=== PATIENT | female | born 1940 | race Caucasian/White ===

== ENCOUNTER 2016-12-09 15:05 | Emergency (ER) | payer MEDICARE ==
[2016-12-09 15:15] VITALS: BP 151/70
--- NOTE | 2016-12-09 15:35 | ED Physician Documentation ---
PD HPI UPPER EXT INJURY - Stated complaint Stated Complaint: LT FINGER LAC - Chief complaint Chief Complaint: Laceration - History obtained from History obtained from: Patient - History of Present Illness Location: Left, Finger (3rd digit) Type of injury: Laceration (caught finger on door today) Where injury occurred: Home Timing - onset: How many hours ago (2) Timing - duration: Hours (2) Timing - details: Abrupt onset Pain level max: 3 Pain level now: 1 Improved by: Rest, Other (quick clot) Worsened by: Moving, Palpating Associated symptoms: No: Weakness, Numbness, Tingling, Swelling Contributing factors: No: Anticoagulated - Additonal information Additional information: Pt is right handed Review of Systems Neurologic: denies: Focal weakness, Numbness PD PAST MEDICAL HISTORY - Past Medical History Past Medical History: No - Past Surgical History Past Surgical History: No - Immunizations Immunizations: TDAP current <10years PD ED PE NORMAL - Vitals Vital signs reviewed: Yes - General General: Alert and oriented X 3, Well developed/nourished - Derm Derm: Warm and dry - Extremities Extremities: Other (L 3rd digit - NVI. 0.2cm skin avulsion over the tip of the finger. ) - Neuro Neuro: Alert and oriented X 3 - Psych Psych: Normal mood, Normal affect Results - Vitals Vitals: Vital Signs - 24 hr 12/09/16 15:10 Temperature 36.6 C Heart Rate 79 Respiratory 18 Rate Blood Pressure 151/70 H O2 Saturation 97 Oxygen O2 Source Room air PD MEDICAL DECISION MAKING - ED course Complexity details: considered differential, d/w patient, d/w family ED course: Patient is a 76-year-old female with a small skin avulsion over the L 3rd digit. NVI. The wound was cleansed and bandaged. Gelfoam placed over the wound. Antibiotic ointment applied. Bleeding controlled. Warnings of infection and instructions on wound care given at bedside. Also counseled on how to minimize scarring. Patient counseled regarding signs and symptoms for which I believe and urgent re-evaluation would be necessary. Patient with good understanding of and agreement to plan and is comfortable going home at this time This document was made in part using voice recognition software. While efforts are made to proofread this document, sound alike and grammatical errors may occur. Departure - Departure Disposition: 01 Home, Self Care Clinical Impression: Fingertip avulsion Qualifiers: Encounter type: initial encounter Qualified Code(s): S61.209A - Unspecified open wound of unspecified finger without damage to nail, initial encounter Condition: Good Instructions: ED Laceration Amputation Finger Tip Open Tx Follow-Up: Marilee Renteria MD [Primary Care Provider] - Within 1 week (for wound check) Comments: Keep the wound clean. Apply antibiotic ointment twice daily. Return if you worsen. Your blood pressure was elevated today on check in to the emergency department. This does not mean that you have hypertension, it is a common phenomenon to check into the emergency department and have elevated blood pressure. I recommend that you see your primary care physician within the week to have it rechecked when you're feeling better. Discharge Date/Time: 12/09/16 16:09
== END 2016-12-09 16:09 | disposition home or self-care (01) ==
LOC: ED 15:05
DX: S61.213A Laceration without foreign body of left middle finger without damage to nail, initial encounter (principal); W23.0XXA Caught, crushed, jammed, or pinched between moving objects, initial encounter; Y92.009 Unspecified place in unspecified non-institutional (private) residence as the place of occurrence of the external cause; R03.0 Elevated blood-pressure reading, without diagnosis of hypertension
CPT/HCPCS: 99283

== ENCOUNTER 2017-03-23 10:49 | Outpatient (CLI) | payer MEDICARE ==
--- NOTE | 2017-03-24 14:26 | Mammography Report ---
DIGITAL SCREENING MAMMOGRAM: 03/23/2017 CLINICAL INDICATION: A 77-year-old with history of benign biopsy, for screening, family history of br east cancer. COMPARISON: 03/2016, 02/2014, 02/2013, 02/2012, 12/2010, 10/2009. TECHNIQUE: Routine CC and MLO projections were obtained of the breasts. Bilateral laterally exaggera kuldeep craniocaudal views. FINDINGS: The breasts again demonstrate heterogeneously dense fibroglandular parenchyma bilaterally. Coarse and punctate, typically benign calcifications are present. No suspicious masses, clustered mi crocalcifications, or regions of architectural distortion are identified. IMPRESSION: BENIGN FINDINGS. RECOMMENDATION: ROUTINE ANNUAL SCREENING UNLESS OTHERWISE CLINICALLY INDICATED. BIRADS CATEGORY 2-BENIGN FINDINGS. STANDARD QUALIFYING STATEMENTS 1. This examination was reviewed with the aid of Computer-Aided Detection (CAD). 2. A negative or benign imaging report should not delay biopsy if clinically suspicious findings are present. Consider surgical consultation if warranted. More than 5% of cancers are not identified by i maging. 3. Dense breasts may obscure an underlying neoplasm. JOB #: [id number] EXT JOB #:[id number]
== END 2017-03-23 10:50 | disposition home or self-care (01) ==
LOC: DI.S 10:49
PROVIDERS: ATTEND Family Medicine
DX: Z12.31 Encounter for screening mammogram for malignant neoplasm of breast (principal); Z80.3 Family history of malignant neoplasm of breast
CPT/HCPCS: 77067

== ENCOUNTER 2018-04-27 14:49 | Outpatient (CLI) | payer MEDICARE ==
--- NOTE | 2018-04-28 08:11 | Mammography Report ---
Reason: SCREENING MAMMO Procedure Date: 04/27/2018 Accession Number: [id number] / [id number] Procedure: CHARLES - Screening Mammo w/Hung CPT Code: FULL RESULT: EXAM: Screening Mammo w/Hung DATE: 04/27/2018 3:17 PM CLINICAL HISTORY: Screening. Family history breast cancer mother age 75. No reported personal history of breast cancer. TECHNIQUE: Bilateral CC and MLO views were obtained. COMPARISON: 03/23/2017 through 02/23/2014 FINDINGS: The breasts demonstrate heterogeneously dense fibroglandular parenchyma bilaterally. Left breast: There is a partially circumscribed partially obscured margin 2 cm oval mass in the anterior 6:00 breast 2.5 cm from the nipple best seen on 3-D imaging (reference MLO slice 16; CC slice 12). There are no suspicious calcifications or areas of distortion. Right breast: There are no suspicious masses, calcifications or areas of distortion. IMPRESSION: Incomplete examination RECOMMENDATION: Targeted ultrasound 6:00 left breast is recommended. BI-RADS CATEGORY 0: Incomplete examination STANDARD QUALIFYING STATEMENTS: 1. This examination was not reviewed with the aid of Computer-Aided Detection (CAD). 2. A negative or benign imaging report should not preclude biopsy if clinically suspicious findings are present. 3. Dense breasts may obscure an underlying neoplasm. 4. This examination was reviewed with the aid of 3D breast imaging (tomosynthesis).
== END 2018-04-27 14:50 | disposition home or self-care (01) ==
LOC: DI 14:49
DX: Z12.31 Encounter for screening mammogram for malignant neoplasm of breast (principal); Z80.3 Family history of malignant neoplasm of breast
CPT/HCPCS: 77063; 77067

== ENCOUNTER 2018-05-13 11:59 | Outpatient (CLI) | payer MEDICARE ==
--- NOTE | 2018-05-13 15:33 | Ultrasound Report ---
Reason: ABN MAMMO Procedure Date: 05/13/2018 Accession Number: [id number] / [id number] Procedure: US - Breast Unilateral Limited CPT Code: FULL RESULT: EXAM: Breast Unilateral Limited DATE: 05/13/2018 12:50 PM CLINICAL HISTORY: Diagnostic breast ultrasound as a result of abnormal mammographic findings in the left breast. COMPARISON: Mammograms 04/27/2018 through 02/23/2014 TECHNIQUE: Targeted ultrasound was performed of the left breast in the area of clinical concern at 6 o'clock and 2 cm distance from the nipple. Color Doppler was employed as appropriate. FINDINGS: There is a 1.2 x 0.5 x 1.5 cm wider than tall solid complex mass with partially ill-defined borders. This mass is not definitively characterized as benign and requires biopsy. IMPRESSION: Suspicious abnormality. RECOMMENDATION: Ultrasound guided left breast mass biopsy. BIRADS CATEGORY 4 RADIA The patient was informed of the findings and need for biopsy. The patient declined an appointment for biopsy at this time. She wishes to discuss the findings with Dr. Renteria first. Attempts to reach the patient's primary care provider Dr. Marilee Renteria directly were unsuccessful. A message has been left with Dr. Renteria's answering system.
== END 2018-05-13 12:00 | disposition home or self-care (01) ==
LOC: DI 11:59
PROVIDERS: ATTEND Family Medicine
DX: R92.8 Other abnormal and inconclusive findings on diagnostic imaging of breast (principal); N63.20 Unspecified lump in the left breast, unspecified quadrant
CPT/HCPCS: 76642

== ENCOUNTER 2019-10-30 15:21 | Outpatient (CLI) | payer MEDICARE | END 2019-10-31 15:22 | disposition critical access hospital (66) | LOC: EMS 15:21 | PROVIDERS: ATTEND Surgery | DX: S69.91XA Unspecified injury of right wrist, hand and finger(s), initial encounter (principal); W10.8XXA Fall (on) (from) other stairs and steps, initial encounter; Y93.01 Activity, walking, marching and hiking; Y92.007 Garden or yard of unspecified non-institutional (private) residence as the place of occurrence of the external cause | CPT/HCPCS: A0425; A0427 ==

== ENCOUNTER 2019-10-30 15:52 | Emergency (ER) | payer MEDICARE ==
--- NOTE | 2019-10-30 15:58 | ED Physician Documentation ---
PD HPI UPPER EXT INJURY - Stated complaint Stated Complaint: FALL - History obtained from History obtained from: Patient, EMS - History of Present Illness Location: Right (She tripped on her flip-flops and fell forward onto an outstretched right hand which is her dominant side. No other injuries. Declines pain medication on initial evaluation.) Review of Systems Ten Systems: 10 systems reviewed and negative Constitutional: reports: Reviewed and negative Cardiac: reports: Reviewed and negative Respiratory: reports: Reviewed and negative PD PAST MEDICAL HISTORY - Past Medical History Past Medical History: No - Past Surgical History Past Surgical History: No - Present Medications Home Medications: Ambulatory Orders Medication Instructions Recorded Confirmed traMADol [Ultram] 50 mg PO Q4-6H PRN #15 tablet 10/30/19 - Allergies Allergies/Adverse Reactions: Allergies Allergy/AdvReac Type Severity Reaction Status Date / Time codeine Allergy Unknown Verified 10/30/19 16:14 erythromycin base Allergy Unknown Verified 10/30/19 16:14 - Social History Does the pt have substance abuse?: No - Immunizations Immunizations: TDAP current <10years PD ED PE NORMAL - Vitals Vital signs reviewed: Yes - General General: Alert and oriented X 3, No acute distress - HEENT HEENT: PERRL, Pharynx benign, Dentition benign - Neck Neck: Supple, no meningeal sign, No bony TTP - Cardiac Cardiac: RRR, No murmur - Respiratory Respiratory: No respiratory distress, Clear bilaterally - Abdomen Abdomen: Non tender - Extremities Extremities: Other (She has a dinner fork type deformity of the right wrist consistent with a Colles' fracture, normal sensation and cap refill in the hand.) - Neuro Neuro: Alert and oriented X 3, Normal speech Results - Vitals Vitals: Vital Signs - 24 hr 10/30/19 16:05 Temperature 36.9 C Heart Rate 78 Respiratory 20 Rate Blood Pressure 140/74 H O2 Saturation 100 Oxygen O2 Source Room air - Rads (name of study) XR R wrist Radiology: EMP read contemporaneously (Impacted and slightly displaced distal radius fracture) post reduction Radiology: EMP read contemporaneously (Interval excellent reduction) Procedures - Splint (location) R arm Splint applied by: Physician, Tech Type of splint: Fiberglass, Long arm, Sugar tong Other: Patient tolerated well, No complications, Neurovascular intact, Sling provided - Reduction Body part reduced: Right, Wrist Fracture or dislocation: Fracture dislocation Anesthesia: Hematoma block (8ml lidocaine 1% w epi after chloraprep) Reduction aftercare: Xray confirms reduction, Splint applied PD MEDICAL DECISION MAKING - ED course ED course: 29-year-old woman with a dorsally angulated Colles' fracture. Needs reduction. We discussed options and she opted for a trial of a hematoma block and finger traps as opposed to sedation at the beginning. Departure - Departure Disposition: 01 Home, Self Care Clinical Impression: Fracture, Colles, right, closed Qualifiers: Encounter type: initial encounter Qualified Code(s): S52.531A - Colles' fracture of right radius, initial encounter for closed fracture Condition: Good Record reviewed to determine appropriate education?: Yes Instructions: ED Fx Forearm Radius Ulna No Redu Requ Follow-Up: [facility] [Provider Group] - Within 1 week Prescriptions: traMADol [Ultram] 50 mg PO Q4-6H PRN #15 tablet PRN Reason: Pain Comments: You need to follow-up with an orthopedic surgeon, as long as the reduction maintains, I suspect they will not need to do surgery, that said sometimes I am surprised by their opinion so ask her to follow-up and they will switch you over to a cast at some point. Return for new or worsening symptoms. You can take 600 mg (3 tablets of ibuprofen every 6 hours alternating with 2 extra strength Tylenol, 1000 mg, every 6 hours for pain. If pain is uncontrolled you can add the tramadol.
[2019-10-30] MEDS ORDERED: LIDOCAINE 1%-EPI 1:100000 20 ML MDV SUBQ STA (16:23)
--- NOTE | 2019-10-30 16:25 | XRAY Report ---
PROCEDURE: Wrist 3 View RT INDICATIONS: wrist inj TECHNIQUE: 3 views of the wrist were acquired. COMPARISON: None FINDINGS: Bones: Acute impacted distal radial fracture is seen with dorsal displacement and angulation at fract ure site and shortening of distal radial shaft. No other fracture or dislocation is seen. Osteoarthri tic changes are noted throughout wrist joints. There is diffuse osteopenia.. No suspicious bony lesi ons. Scaphoid view: Scaphoid is grossly intact. Soft tissues: No suspicious soft tissue calcifications. IMPRESSION: Acute impacted and slightly displaced distal radial fracture as above. Reviewed by: Miguel Angel Mock MD on 10/30/2019 4:24 PM PDT Approved by: Miguel Angel Mock MD on 10/30/2019 4:24 PM PDT Station ID: [id number]
--- NOTE | 2019-10-30 17:03 | XRAY Report ---
PROCEDURE: Wrist 2 View RT INDICATIONS: post reduction TECHNIQUE: 2 views of the wrist were acquired. COMPARISON: Earlier study from the same day. FINDINGS: Bones: There is interval reduction of earlier noted impacted distal radial shaft fracture with improv ed wrist alignment. There is also interval placement of a cast over right wrist. No new fracture or d islocation is seen. No suspicious bony lesions. Scaphoid view: Scaphoid is grossly intact. Soft tissues: No suspicious soft tissue calcifications. IMPRESSION: Interval reduction of earlier noted distal radial shaft fracture with improved wrist alignment. Reviewed by: Miguel Angel Mock MD on 10/30/2019 5:02 PM PDT Approved by: Miguel Angel Mock MD on 10/30/2019 5:02 PM PDT Station ID: [id number]
[2019-10-30 17:27] VITALS: BP 115/69
[2019-10-30] MEDS ORDERED: IBUPROFEN 600 MG TABLET PO STA (17:35)
== END 2019-10-30 17:59 | disposition home or self-care (01) ==
LOC: EDUNIT# → ED 15:52
DX: S52.531A Colles' fracture of right radius, initial encounter for closed fracture (principal); W10.8XXA Fall (on) (from) other stairs and steps, initial encounter
CPT/HCPCS: 25605; 73100; 73110; 99283; A9270

== ENCOUNTER 2020-04-09 10:05 | Outpatient (CLI) | payer MEDICARE ==
--- NOTE | 2020-04-09 15:51 | DEXA Report ---
PROCEDURE: Dexa Spine and/or Hip INDICATIONS: OSTEOPOROSIS TECHNIQUE: Dual energy x-ray absorptiometry (DXA) was performed on a [employer]. Regions measur ed are the AP Spine, femoral neck, and if needed forearm. COMPARISON: None. FINDINGS: Lumbar Spine: Bone Mineral Density 0.895 g/cm/cm,T score -2.4, severe osteopenia Left Hip: Bone Mineral Density 0.722 g/cm/cm,T score -2.3, severe osteopenia Left Femoral Neck: Bone Mineral Density 0.778 g/cm/cm, T score -1.9, moderate to severe osteopenia (T score greater or equal to -1.0: NORMAL) (T score from -1.1 to -2.4: OSTEOPENIA) (T score less than or equal to -2.5 to: OSTEOPOROSIS) Impression: Moderate to severe osteopenia most notable in the lumbar spine and left hip. Patients with diagnosis of osteoporosis or osteopenia should have regular bone mineral density assess ment. For those eligible for Medicare, routine testing is allowed once every 2 years. Testing frequ ency can be increased for patients who have rapidly progressing disease or for those who are receivin g medical therapy to restore bone mass. Reviewed by: Kaci Fortune MD on 04/09/2020 3:50 PM PST Approved by: Kaci Fortune MD on 04/09/2020 3:50 PM PST Station ID: [id number]
== END 2020-04-09 10:06 | disposition home or self-care (01) ==
LOC: DI 10:05
PROVIDERS: ATTEND Nurse Practitioner Family
DX: M85.89 Other specified disorders of bone density and structure, multiple sites (principal)

== ENCOUNTER 2020-07-10 15:37 | Outpatient (CLI) | payer MEDICARE ==
--- NOTE | 2020-07-10 16:30 | XRAY Report ---
PROCEDURE: Hip w/Pelvis 2-3V RT INDICATIONS: RIGHT HIP PAIN TECHNIQUE: AP pelvis with lateral view(s) of the bilateral hip(s). COMPARISON: None. FINDINGS: No fracture. Lumbar spondylosis and facet arthropathy. Mild bilateral hip joint generation. Scattered subchondral sclerosis and spurring. Soft tissues: The visualized bowel gas pattern is normal. No suspicious soft tissue calcifications . IMPRESSION: Mild bilateral hip joint degeneration. If the patient's pain or other symptoms persist, consider furt her evaluation with MRI. Reviewed by: Ho Wheeler MD on 07/10/2020 4:29 PM PST Approved by: Ho Wheeler MD on 07/10/2020 4:29 PM PST Station ID: [id number]
--- NOTE | 2020-07-10 16:32 | XRAY Report ---
PROCEDURE: Lumbar Spine 2 View INDICATIONS: PAIN IN RIGHT HIP TECHNIQUE: 2 views of the lumbar spine were acquired. COMPARISON: None. FINDINGS: No fracture identified. Scattered multilevel endplate spurring and diffuse facet arthropathy. Diffuse mild narrowing of lumbar disc spaces except at L1-L2 where there is moderate disc height loss . Dextrocurvature centered at L2. Soft tissues: Overlying bowel gas pattern is normal. No suspicious soft tissue calcifications. IMPRESSION: Dextroscoliosis Mild to moderate multilevel lumbar spondylosis and facet arthropathy, most pronounced at L1-L2 Reviewed by: Ho Wheeler MD on 07/10/2020 4:30 PM PST Approved by: Ho Wheeler MD on 07/10/2020 4:30 PM PST Station ID: [id number]
--- NOTE | 2020-07-10 16:38 | XRAY Report ---
PROCEDURE: Sacrum/Coccyx INDICATIONS: PAIN IN RIGHT HIP TECHNIQUE: 3 views of the sacrum and coccyx acquired. COMPARISON: Lumbar spine dated same day. FINDINGS: No fracture. Lumbar spondylosis and facet disease. Sacroiliac joints grossly unremarkable. Soft tissu es: Visualized bowel gas pattern is normal. No suspicious soft tissue densities. IMPRESSION: No definite acute fracture. Degenerative changes as above. Reviewed by: Ho Wheeler MD on 07/10/2020 4:37 PM PST Approved by: Ho Wheeler MD on 07/10/2020 4:37 PM PST Station ID: [id number]
== END 2020-07-10 15:38 | disposition home or self-care (01) ==
LOC: DI.S 15:37
PROVIDERS: ATTEND Nurse Practitioner Family
DX: M25.551 Pain in right hip (principal); M16.0 Bilateral primary osteoarthritis of hip; M47.816 Spondylosis without myelopathy or radiculopathy, lumbar region; M41.86 Other forms of scoliosis, lumbar region

== ENCOUNTER 2021-03-27 08:00 | Outpatient (CLI) | payer MEDICARE | END 2021-03-27 23:59 | disposition home or self-care (01) | LOC: LAB.S 08:00 | PROVIDERS: ATTEND Physician Assistant | DX: R42 Dizziness and giddiness (principal) ==

== ENCOUNTER 2021-03-27 11:57 | Outpatient (CLI) | payer MEDICARE | END 2021-03-27 11:58 | disposition critical access hospital (66) | LOC: EMS 11:57 | DX: R42 Dizziness and giddiness (principal); R94.31 Abnormal electrocardiogram [ECG] [EKG] | CPT/HCPCS: A0425; A0429 ==

== ENCOUNTER 2021-03-27 12:40 | Emergency (ER) | payer MEDICARE ==
--- NOTE | 2021-03-27 13:37 | ED Physician Documentation ---
History of Present Illness - Stated complaint Stated Complaint: DIZZY - Chief complaint Chief Complaint: Cardiac - History obtained from History obtained from: Patient - History of Present Illness Timing: Today Pain level max: 0 Pain level now: 0 - Additonal information Additional information: Patient is an 81-year-old female who presents to the emergency department feeling lightheaded earlier today. No chest pain or shortness of breath. No nausea. No vomiting. No chest pressure. Currently asymptomatic. No cardiac history. Has never had a cardiac stress test. Review of Systems Ten Systems: 10 systems reviewed and negative Constitutional: denies: Fever Cardiac: denies: Chest pain / pressure Respiratory: denies: Cough GI: denies: Nausea, Vomiting, Diarrhea : denies: Dysuria Skin: denies: Rash Neurologic: denies: Headache PD PAST MEDICAL HISTORY - Past Medical History Past Medical History: No - Past Surgical History Past Surgical History: No - Present Medications Home Medications: Ambulatory Orders Medication Instructions Recorded Confirmed Cholecalciferol [Vitamin D3] 5,000 unit ORAL DAILY 03/27/21 03/27/21 Omega3/Dha/Epa/Fish Oil/Vit D3 1 cap ORAL DAILY 03/27/21 03/27/21 [Fish Oil-Vit D3 Softgel] - Allergies Allergies/Adverse Reactions: Allergies Allergy/AdvReac Type Severity Reaction Status Date / Time codeine Allergy Unknown Verified 03/27/21 12:54 erythromycin base Allergy Unknown Verified 03/27/21 12:54 - Living Situation Living Arrangement: reports: At home - Social History Does the pt smoke?: No Does the pt have substance abuse?: No - Immunizations Immunizations: TDAP current <10years PD ED PE NORMAL - Vitals Vital signs reviewed: Yes - General General: Alert and oriented X 3, No acute distress, Well developed/nourished - HEENT HEENT: PERRL, Ears normal, Moist mucous membranes, Pharynx benign - Neck Neck: Supple, no meningeal sign, No bony TTP - Cardiac Cardiac: RRR, Strong equal pulses - Respiratory Respiratory: No respiratory distress, Clear bilaterally - Abdomen Abdomen: Soft, Non tender, Non distended - Derm Derm: Warm and dry, No rash - Extremities Extremities: No edema, No calf tenderness / cord - Neuro Neuro: Alert and oriented X 3 - Psych Psych: Normal mood, Normal affect Results - Vitals Vitals: Vital Signs - 24 hr 03/27/21 03/27/21 03/27/21 12:43 12:49 14:28 Temperature 97.2 C H Heart Rate 75 79 80 Respiratory 18 18 Rate Blood Pressure 168/72 H 168/72 H 129/53 L O2 Saturation 99 99 03/27/21 15:38 Temperature Heart Rate 81 Respiratory 14 Rate Blood Pressure 136/4 H O2 Saturation 99 Oxygen O2 Source Room air - EKG (time done) 1321 Rate: Rate (enter#) (65) Rhythm: NSR [place]: Normal Intervals: Normal [place] QRS: Normal Ischemia: Other (ST elevation not consistent with ischemia) Compare to prior EKG: Old EKG unavailable - Labs Labs: Laboratory Tests 03/27/21 03/27/21 03/27/21 13:36 13:36 13:36 WBC 7.6 RBC 4.87 Hgb 15.3 Hct 44.9 MCV 92.2 MCH 31.4 H MCHC 34.1 RDW 12.2 Plt Count 232 MPV 9.5 Neut # (Auto) 6.2 Lymph # (Auto) 1.0 L [place] # (Auto) 0.4 Eos # (Auto) 0.0 Baso # (Auto) 0.0 Absolute Nucleated RBC 0.00 Nucleated RBC % 0.0 Sodium 138 Potassium 4.2 Chloride 105 Carbon Dioxide 25 Anion Gap 8.0 BUN 14 Creatinine 0.6 Estimated GFR (MDRD) 96 Glucose 99 Calcium 9.5 Total Bilirubin 1.2 H AST 17 ALT 15 Alkaline Phosphatase 58 Troponin I High Sens 4.8 Total Protein 7.3 Albumin 4.8 Globulin 2.5 Albumin/Globulin Ratio 1.9 Lipase 43 03/27/21 14:38 WBC RBC Hgb Hct MCV MCH MCHC RDW Plt Count MPV Neut # (Auto) Lymph # (Auto) [place] # (Auto) Eos # (Auto) Baso # (Auto) Absolute Nucleated RBC Nucleated RBC % Sodium Potassium Chloride Carbon Dioxide Anion Gap BUN Creatinine Estimated GFR (MDRD) Glucose Calcium Total Bilirubin AST ALT Alkaline Phosphatase Troponin I High Sens 5.6 Total Protein Albumin Globulin Albumin/Globulin Ratio Lipase - Rads (name of study) cxr Radiology: Final report received, EMP read contemporaneously, See rad report (no acute disease) PD MEDICAL DECISION MAKING - ED course Complexity details: reviewed results, re-evaluated patient, considered differential, d/w patient ED course: 81-year-old female with lightheadedness earlier today. No chest pain. No dyspnea. Her EKG does not appear to have ischemic changes, and the ST elevation appears to be J-point elevation. Negative troponin x2. Asymptomatic here. Has been asymptomatic for 6 hours. We will have her follow-up with her doctor for a cardiac stress test and she will return if she worsens. Patient states she has never had an EKG in her life before today. Patient counseled regarding signs and symptoms for which I believe and urgent re-evaluation would be necessary. Patient with good understanding of and agreement to plan and is comfortable going home at this time This document was made in part using voice recognition software. While efforts are made to proofread this document, sound alike and grammatical errors may occur. Departure - Departure Disposition: 01 Home, Self Care Clinical Impression: Lightheadedness Condition: Good Instructions: ED Dizziness [facility] Follow-Up: TALON DILLON ARNP [Primary Care Provider] - Within 1 week Comments: Your heart tests are negative today. It is recommended that you have a cardiac stress test with your doctor. Please follow-up with your doctor for further care. Return if you worsen. Discharge Date/Time: 03/27/21 15:39
[2021-03-27 13:42] LABS: BASOPHILS % (AUTO) 0.4 %; EOSINOPHILS % (AUTO) 0.4 %; HCT - HEMATOCRIT 44.9 % (37.0-47.0); HGB - HEMOGLOBIN 15.3 g/dL (12.0-16.0); LYMPHOCYTES % (AUTO) 12.9 %; MEAN CORPUSCULAR HEMOGLOBIN 31.4 pg (27.0-31.0); MEAN CORPUSCULAR HGB CONC 34.1 g/dL (32.0-36.0); MEAN CORPUSCULAR VOLUME 92.2 fL (81.0-99.0); MEAN PLATELET VOLUME 9.5 fL (7.9-10.8); MONOCYTES # (AUTO) 0.4 10^3/uL (0.0-1.0); MONOCYTES % (AUTO) 4.9 %; NEUTROPHILS # (AUTO) 6.2 10^3/uL (1.5-6.6); PLT - PLATELET COUNT 232 10^3/uL (130-450); RED BLOOD COUNT 4.87 10^6/uL (4.20-5.40); RED CELL DISTRIBUTION WIDTH 12.2 % (12.0-15.0); WHITE BLOOD COUNT 7.6 x10^3/uL (4.8-10.8)
--- NOTE | 2021-03-27 13:47 | XRAY Report ---
PROCEDURE: Chest 1 View X-Ray INDICATIONS: Chest Pain TECHNIQUE: One view of the chest was acquired. COMPARISON: None FINDINGS: Surgical changes and devices: None. Lungs and pleura: No pleural effusions or pneumothorax. Lungs are clear. Mediastinum: Mediastinal contours appear normal. Heart size is probably. Bones and chest wall: No suspicious bony lesions. Overlying soft tissues appear unremarkable. IMPRESSION: No acute pulmonary process. Reviewed by: Kaci Fortune MD on 03/27/2021 1:46 PM [facility] Approved by: Kaci Fortune MD on 03/27/2021 1:46 PM [facility] Station ID: [id number]
[2021-03-27 13:57] LABS: ALBUMIN 4.8 g/dL (3.2-5.5); ALBUMIN/GLOBULIN RATIO 1.9 (1.0-2.2); BILIRUBIN,TOTAL 1.2 mg/dL (0.2-1.0); CALCIUM 9.5 mg/dL (8.5-10.3); CREATININE 0.6 mg/dL (0.4-1.0); POTASSIUM 4.2 mmol/L (3.5-5.0); TOTAL PROTEIN 7.3 g/dL (6.7-8.2)
[2021-03-27 15:40] VITALS: BP 136/4
== END 2021-03-27 15:39 | disposition home or self-care (01) ==
LOC: EDUNIT# → ED 12:40
DX: R42 Dizziness and giddiness (principal)
CPT/HCPCS: 36415; 80053; 83690; 84484; 85025; 93005; 99283; 99284

== ENCOUNTER 2021-10-08 10:50 | Outpatient (CLI) | payer MEDICARE ==
--- NOTE | 2021-10-08 13:18 | XRAY Report ---
PROCEDURE: Knee 3 View LT INDICATIONS: PAIN OF LEFT KNEE JOINT TECHNIQUE: 3 views of the left knee(s) were acquired. COMPARISON: None. FINDINGS: Bones: No fractures or dislocations. No suspicious bony lesions. Mild tricompartmental periarticul ar osteophyte formation. Soft tissues: No joint effusion. No suspicious soft tissue calcifications. IMPRESSION: Osteoarthritis. No acute fracture. No osseous lesion. If symptoms and/or clinical suspic ion for pathology continue, further assessment with repeat plain films, or advanced imaging (e.g., CT , MRI, or bone scan) is recommended for further assessment. Reviewed by: Calvin Eric MD on 10/08/2021 1:16 PM PDT Approved by: Calvin Eric MD on 10/08/2021 1:16 PM PDT Station ID: [id number]
== END 2021-10-08 10:51 | disposition home or self-care (01) ==
LOC: DI.S 10:50
PROVIDERS: ATTEND Physician Assistant
DX: M17.12 Unilateral primary osteoarthritis, left knee (principal)

== ENCOUNTER 2023-11-18 09:26 | Outpatient (CLI) | payer MEDICARE | END 2023-11-18 09:27 | disposition home or self-care (01) | LOC: CAM 09:26 | PROVIDERS: ATTEND Nurse Practitioner Family | DX: G56.01 Carpal tunnel syndrome, right upper limb (principal) | CPT/HCPCS: 97810; 97811 ==

== ENCOUNTER 2023-11-25 09:38 | Outpatient (CLI) | payer MEDICARE | END 2023-11-25 09:39 | disposition home or self-care (01) | LOC: CAM 09:38 | PROVIDERS: ATTEND Nurse Practitioner Family | DX: G56.01 Carpal tunnel syndrome, right upper limb (principal) | CPT/HCPCS: 97810; 97811 ==

== ENCOUNTER 2023-12-02 09:41 | Outpatient (CLI) | payer MEDICARE | END 2023-12-02 09:42 | disposition home or self-care (01) | LOC: CAM 09:41 | PROVIDERS: ATTEND Nurse Practitioner Family | DX: G56.01 Carpal tunnel syndrome, right upper limb (principal) | CPT/HCPCS: 97810; 97811 ==

== ENCOUNTER 2023-12-16 09:41 | Outpatient (CLI) | payer MEDICARE | END 2023-12-16 09:42 | disposition home or self-care (01) | LOC: CAM 09:41 | PROVIDERS: ATTEND Nurse Practitioner Family | DX: G56.01 Carpal tunnel syndrome, right upper limb (principal) | CPT/HCPCS: 97810; 97811 ==

== ENCOUNTER 2024-01-20 10:54 | Outpatient (CLI) | payer MEDICARE | END 2024-01-20 10:55 | disposition home or self-care (01) | LOC: CAM 10:54 | PROVIDERS: ATTEND Nurse Practitioner Family | DX: G56.01 Carpal tunnel syndrome, right upper limb (principal) | CPT/HCPCS: 97810; 97811 ==